=== PATIENT | male | born 1945 | race Caucasian/White ===

== ENCOUNTER 2017-06-13 21:32 | Emergency (ER) | payer MEDICARE ==
[~2017-06-13] VITALS: Ht 190.5 cm; Wt 77.3 kg
[~2017-06-13 21:32] MED LIST: AMPH10SR PO; HYDR-4003 PO; POLY17PO6 PO; VENL75CA PO
[2017-06-13 21:50] VITALS: BP 116/67; PULSE 104; RESP 12; O2SAT 96
--- NOTE | 2017-06-13 23:08 | ED.REPORT ---
HPI-Extremity Problem Upper Date of Service Jun 13, 2017 ED Provider: Marlon Awan DO Mr. Hebert is a very pleasant 71-year-old male sensitive the ED with a right wrist laceration. He along with a group from his nondenominational are sleeping in their cars to raise money for the homeless. Lifting a seat from his trailer van the metal part of month to see cut his arm. He had cleaned it with water and put antibiotic ointment on it before coming to the ED. He denies loss of dentition or strength within that hand. Nursing Notes Stated Complaint: GASH IN FOREARM Chief Complaint: Extremity Trauma Allergies: Coded Allergies: No Known Allergies (Verified , 04/06/14) Scheduled Dextroamphetamine/Amphetamine ER (Adderall XR) 10 Mg Cap.er.24h 10 MG PO DAILY Polyethylene Glycol 3350 (Miralax) 17 Gm Powd.pack 17 GM PO DAILY Venlafaxine ER (Effexor XR) 75 Mg Cap.er.24h 75 MG PO DAILY Scheduled PRN Hydrocodone-Acetaminophen 5-325 mg (Hydrocodone-Acetaminophen 5-325 mg) 1 Each Tablet 1-2 EACH PO Q 4-6HRS PRN PRN PRN For Pain General Time Seen by MD: 22:11 Chief Complaint Wrist injury right Hx Obtained From: Patient Arrived By: Walk-in Onset Occurred: 46 - 59 minutes ago Location: : Wrist right Quality: Pressure Associated with: Reports: Numb extremities Pertinent Negative: Pt denies other symptoms Pertinent Negative: Exacerbated by nothing Past Medical History Past Medical History Prostate cancer x2 Reports: COPD Past Surgical History NONE Smoking History Current Every Day Smoker Review of Systems Basic Review of Systems Eyes: Vision NL, No discharge ENT: Hearing NL, No pain, No nasal congestion, No pharyngeal pain Respiratory: No shortness of breath, No cough, No wheeze Cardiovascular: No chest pain, No dyspnea on exertion, No orthopnea, No parox noct dyspnea, No palpitations GI: No abdominal pain, No anorexia, No nausea, No vomiting : No dysuria, No frequency Allergy / Immune: No allergy Psychiatric: Normal thought content Constitutional: Denies: Chills, Fever Skin: Reports Bruising Complete sys rev & neg: except as marked. Physical Exam Initial Vital Signs Vital Signs (First) Date Time Temp Pulse Resp B/P Pulse Ox O2 Delivery O2 Flow Rate FiO2 06/13/17 21:50 36.9 104 12 116/67 96 Room Air Initial VS: Reviewed General/Constitutional: Well-developed, Well-nourished Head / Eyes: Atraumatic, Normocephalic, PERRL ENT: Mucous membranes moist, Conjunctiva normal, No scleral icterus Skin: Warm, Dry Skin: Color NL, Warm, No swelling Laceration on the volar aspect of the right wrist. 4 cm x 2.5 cm. no tendons exposed. Sensation intact. Muscle strength 5/5 Neurologic: Oriented X3, Speech NL, No motor deficits, No sensory deficits Procedures Laceration Management Laceration Management: Explored the depth of the wound in a bloodless field. Not find any tendon injury, arthrotomy, or foreign body. Time: 22:30 Procedure Performed by: ED resident Consent / Setup / Site Prep: Consent from patient, Consent from parent, Hand hygiene observed, Stand sterile technique Wound Length: 4 cm Local Anesthesia: Lidocaine 1% Digital Block: No Wound Preparation: Normal saline Irrigation: Copious Foreign Body Explore / Removal: Explored for foreign body Undermining / Margins: Wound margins revised, Flaps aligned Repair Skin: ___ O (4), Vicryl # Sutures - Skin: 8 Closure Layers: 1 Suture Technique: Simple Post-Procedure / Complications: Antibiotic oint applied, Dressing applied, No complications, Condition improved, Tolerated procedure well, Patient stable Re-Eval/Medical Decision Med Decision/Clinical Course Mr. Hebert presents with a 4 cm x 2.5 cm laceration on his right wrist. Muscle strength is 5/5 in the hand. Sensation is intact. Radial artery is identified and is intact. Laceration repair with a 4-0 Vicryl, simple interrupted. Discharge & Departure Impression: Primary Impression: Laceration Disposition: Home Discharge Condition All VS Reviewed: Yes Condition: Stable Patient Instructions: Suture Care (ED), Acute Wound Care (ED) Additional Instructions: Closer laceration with sutures today. Keep her wound dry and clean. Keep the sutures in for 7-10 days for removal. I did not see any exposed tendons so you would not be needing any antibiotics today. Referrals: Santos Aldrich MD (PCP) Attending Statement I took a history of performed exam. No evidence of arterial injury. No evidence of tendon injury. No evidence of traumatic arthrotomy. No foreign body. The wound was explored in a bloodless field. The wound was copiously irrigated and prepped. Excellent closure. I was present during the closure. I saw him before during and after the closure. I otherwise agree with the assessment and plan as written above. Mariya Baeza DO Jun 13, 2017 23:08 Marlon Awan DO Jun 14, 2017 04:01
== END 2017-06-13 23:19 | disposition home or self-care (01) ==
LOC: SED 21:32
DX: S61.521A Laceration with foreign body of right wrist, initial encounter (principal); W26.8XXA Contact with other sharp object(s), not elsewhere classified, initial encounter; Y93.89 Activity, other specified; Y92.89 Other specified places as the place of occurrence of the external cause; Y99.8 Other external cause status; J44.9 Chronic obstructive pulmonary disease, unspecified; F17.200 Nicotine dependence, unspecified, uncomplicated; Z85.46 Personal history of malignant neoplasm of prostate; Z59.0 Homelessness